=== PATIENT | female | born 1980 | race Caucasian/White ===

== ENCOUNTER → 2020-03-09 | Outpatient (CLI) | payer OTHER ==
[~2020-03-09] MED LIST: CHOL10003 PO; DIPH25CA61 PO; NORE-93 PO; SERT50TA28 PO
== END | disposition home or self-care (01) ==
LOC: STAR 07:47
PROVIDERS: ATTEND Internal Medicine
DX: Z01.812 Encounter for preprocedural laboratory examination (principal); Z20.828 Contact with and (suspected) exposure to other viral communicable diseases; K80.20 Calculus of gallbladder without cholecystitis without obstruction; K80.50 Calculus of bile duct without cholangitis or cholecystitis without obstruction
CPT/HCPCS: 36415; 87635

== ENCOUNTER 2020-03-13 10:34 | Day surgery (SDC) | payer OTHER ==
[~2020-03-13] VITALS: Ht 157.5 cm; Wt 92.0 kg
[2020-03-13] MEDS ORDERED: CHLORHEXIDINE 15 ML UDC MM STA (10:43)
[2020-03-13 10:57] VITALS: BP 126/83
[2020-03-13] MEDS ORDERED: LACTATED RINGERS 1,000 ML IV SCH (11:00)
[2020-03-13] MEDS ORDERED: MIDAZOLAM 1 MG/ML, 2ML ONE (11:39)
[2020-03-13] MEDS ORDERED: FENTANYL PF 100 MCG/2ML ONE (11:39)
[2020-03-13 11:45] LABS: HCG UR SG 1.023 (1.003-1.030)
[2020-03-13] MEDS ORDERED: PROPOFOL 10 MG/ML, 20ML ONE (12:23)
[2020-03-13] MEDS ORDERED: ROCURONIUM 10 MG/ML,10ML ONE (12:23)
[2020-03-13] MEDS ORDERED: ONDANSETRON 2MG/ML, 2ML ONE (12:23)
[2020-03-13] MEDS ORDERED: DEXAMETHASONE 4 MG/ML, 1ML ONE (12:23)
[2020-03-13] MEDS ORDERED: SUCCINYLCHOLINE 20 MG/ML, 10ML ONE (12:23)
[2020-03-13] MEDS ORDERED: OMNIPAQUE 350 MG/ML, 50 ML BOTTLE ONE (12:30)
[2020-03-13] MEDS ORDERED: FENTANYL PF 100 MCG/2ML IV PRN (13:00)
[2020-03-13] MEDS ORDERED: PROMETHAZINE 25 MG/ML, 1ML IVPush PRN (13:00)
[2020-03-13] MEDS ORDERED: HYDROmorphone 1 MG/ML, 1ML INJ IVPush PRN (13:00)
[2020-03-13] MEDS ORDERED: ACETAMINOPHEN 650 MG/20.3 ML UDC ONE (13:39)
[2020-03-13] MEDS ORDERED: ACETAMINOPHEN 325 MG TABLET PO PRN (14:00)
== END 2020-03-13 15:15 | disposition home or self-care (01) ==
LOC: OUT 10:34
PROVIDERS: ATTEND Internal Medicine
DX: K80.70 Calculus of gallbladder and bile duct without cholecystitis without obstruction (principal); F32.9 Major depressive disorder, single episode, unspecified; E66.09 Other obesity due to excess calories; Z88.8 Allergy status to other drugs, medicaments and biological substances
CPT/HCPCS: 43262; 43264; 74330; 81025; C1769; J0330; J1100; J2250; J2405; J2704; J3010; J7120; Q9967